=== PATIENT | male | born 1985 | race Two or more races ===

== ENCOUNTER 2020-06-17 21:14 | Emergency (ER) | payer OTHER ==
[~2020-06-17] VITALS: Ht 175.3 cm; Wt 81.6 kg
[2020-06-17] MEDS ORDERED: MOTION SICKNESS25 M5 PO (22:46)
== END 2020-06-17 23:49 | disposition home or self-care (01) ==
LOC: ER 21:14
DX: R42 Dizziness and giddiness (principal); Z03.818 Encounter for observation for suspected exposure to other biological agents ruled out